=== PATIENT | female | born 1950 | race Hispanic/Latino ===

== ENCOUNTER 2024-02-12 10:59 | Emergency (ER) | payer SELFPAY ==
[2024-02-12 12:04] LABS: Absolute Eosinophils 0.2 K/uL (0-0.5); Absolute Lymphocytes (CBC) 1.3 K/uL (0.7-4.9); Absolute Monocytes 0.5 K/uL (0.1-1.3); Absolute Neutrophil 5.1 K/uL (1.8-8.0); Basophils % 0.4 % (0-1.3); Eosinophils % 2.6 % (0-4.4); Hemoglobin 14.2 g/dL (12.0-15.0); Lymphocytes % 18.2 % (15.3-44.8); MCH 31.8 pg (27.0-35.0); MCHC 33.7 g/dL (32.0-36.0); MCV 94.4 fL (80-100); MPV 10.4 fL (7.6-11.3); Monocytes % 6.7 % (3.3-12.3); Neutrophils % 72.1 % (41.7-73.7); Nucleated Red Blood Cells % 0.2 % (0-0); Platelets 187 thou/uL (152-406); RBC Red Blood Cell Count 4.46 M/uL (3.86-4.86); Red Cell Distribution Width 13.8 % (12.1-15.2)
[2024-02-12 12:10] LABS: PT Prothrombin Time 11.8 SECONDS (9.4-12.5); PTT, Activated Partial Thromb 28.8 SECONDS (24.3-36.9); Protime INR 1.06
--- NOTE | 2024-02-12 12:16 | RAD REPORT ---
EXAM: CT brain without contrast HISTORY: Left facial droop COMPARISON: None TECHNIQUE: Multiple contiguous axial images were obtained and a CT of the brain without contrast. Sagittal and coronal reformats were performed. Automated exposure control, adjustment of the mA and/or kV according to patient size, and/or itera tive reconstruction. Unless otherwise specified, incidental findings do not require dedicated imaging follow-u FINDINGS: An intracranial bleed is not seen Ventricles are normal caliber No extra-axial fluid collection noted 2.5 cm low-density area right frontal lobe. No fluid within the visualized sinuses or mastoids noted. IMPRESSION: 2.5 cm low-density area right frontal lobe probably an acute infarction. from the emergency room was notified at 12:10 PM February 12, 2024
[2024-02-12 12:26] LABS: Albumin 3.8 g/dL (3.4-5.0); Albumin/Globulin Ratio 0.8 (1.1-1.8); Anion Gap 9.6 mEq/L (5.0-15.0); Bilirubin Direct 0.3 mg/dL (0-0.2); Bilirubin Indirect, Calculated 1.6 mg/dL (0.2-0.8); Bilirubin Total 1.9 mg/dL (0.2-1.0); Globulin 4.6 g/dL (2.3-3.5); Protein, Total 8.4 g/dL (6.4-8.2)
[2024-02-12 12:27] LABS: Magnesium 2.1 mg/dL (1.6-2.4); Potassium 3.6 mEq/L (3.5-5.1)
--- NOTE | 2024-02-12 12:31 | RAD REPORT ---
EXAMINATION: CTA HEAD CLINICAL INDICATION: Left facial droop TECHNIQUE: Axial CT images were obtained through the head after 100 cc Isovue-370 intravenous contras t utilizing angiographic protocol with 3D post-processing (maximum intensity projection images, volume rendered images and/or shaded surface rendered images). One or more of the following dose red uction techniques were used: Automated exposure control, adjustment of the mA and/or kV according to patient size, and/or iterative reconstruction. Unless otherwise specified, incidental findings do not require dedicated imaging follow-up. COMPARISON: None FINDINGS: Distal internal carotid, basilar, anterior cerebral, left middle cerebral and posterior cerebral noni rajwinder do not demonstrate a significant stenosis Hypoplastic A1 segment right anterior cerebral artery origin posterior cerebral arteries An aneurysm not noted. No large vessel occlusion Narrowing of branch right middle cerebral artery. IMPRESSION: Narrowing of a branch of the right middle cerebral artery. No large vessel occlusion.
--- NOTE | 2024-02-12 12:31 | RAD REPORT ---
EXAMINATION: Neck Angio CLINICAL INDICATION: Left facial droop TECHNIQUE: Axial CT images were obtained from the aortic arch to the skull base after intravenous adm inistration of 100 cc Isovue-370 utilizing angiographic protocol. Multiplanar reformats, as well as 3D post-processing (maximum intensity projection images, volume rendered images and/or shaded surface rendered images) were generated and reviewed. One or more of the following dose reduction techniques were used: Automated exposure control, adjustment of the mA and/or kV according to patient size, and/or iterative reconstruction. Unless otherwise specified, incidental findings do not require dedicated imaging follow-up. COMPARISON: No prior exam. FINDINGS: The visualized aortic arch and great vessels do not demonstrate a significant abnormality Marked calcified plaque proximal right internal carotid artery. No significant additional vascular abnormality. Methods for NASCET criteria: Mild stenosis, 0% to 49%; Moderate stenosis 50% to 69%; Severe stenosis, 70% to 99% IMPRESSION: Marked calcified plaque right proximal internal carotid artery results in an approximately 90% stenos is
--- NOTE | 2024-02-12 12:32 | RAD REPORT ---
Procedure: Chest Single View HISTORY: CVA COMPARISON: none FINDINGS: The lungs appear clear of acute infiltrate. No significant pleural effusion noted. The heart is normal size. IMPRESSION: No acute abnormality is displayed.
--- NOTE | 2024-02-12 12:51 | ER ---
Nurse's Notes [facility] Name: Katie Cardenas Age: 73 yrs Sex: Female : 1950 Arrival Date: 02/12/2024 Time: 10:59 Bed 19 Private MD: Diagnosis: Acute CVA;Severe carotid stenosis Presentation: 02/11 11:21 Chief complaint: Patient states: left sided facial droop that started yesterday morning kc6 pt denies headache. Coronavirus screen: At this time, the client does not indicate any symptoms associated with coronavirus-19. Ebola Screen: No symptoms or risks identified at this time. An acute neurological deficit is present. The charge nurse has been notified. Pre-hospital glucose is not applicable to this patient. Initial Sepsis Screen: Does the patient meet any 2 criteria? HR > 90 bpm. Does the patient have a suspected source of infection?. Risk Assessment: Do you want to hurt yourself or someone else? Patient reports no desire to harm self or others. Onset of symptoms was February 11, 2024. 11:21 Method Of Arrival: Ambulatory kc6 11:21 Acuity: AKASH 2 kc6 Triage Assessment: 11:22 The onset of the patients symptoms was more than six hours ago. General: Appears in no kc6 apparent distress. comfortable, well groomed, well developed, Behavior is calm, cooperative, appropriate for age. Pain: Denies pain. EENT: No signs and/or symptoms were reported regarding the EENT system. Neuro: Level of Consciousness is awake, alert, obeys commands, Oriented to person, place, time, situation, Appropriate for age Second Cutter are equal bilaterally Moves all extremities. Full function Gait is steady, Speech is slurred, Facial droop on left, Facial symmetry: tongue is midline, Pupils are PERRLA, Intact Babinski is positive. Cardiovascular: Capillary refill < 3 seconds. Respiratory: Airway is patent Trachea midline Respiratory effort is even, unlabored, Respiratory pattern is regular, symmetrical. GI: No signs and/or symptoms were reported involving the gastrointestinal system. : No signs and/or symptoms were reported regarding the genitourinary system. Derm: No signs and/or symptoms reported regarding the dermatologic system. Skin is intact, is healthy with good turgor, Skin is pink, warm \T\ dry. Musculoskeletal: No signs and/or symptoms reported regarding the musculoskeletal system. Circulation, motion, and sensation intact. Capillary refill < 3 seconds, Range of motion: intact in all extremities. Stroke Activation: Symptom onset > 6 hours Physician: ED Attending; Name: ; Notified At: ; Arrived At: Physician: Mid-Level Provider; Name: ; Notified At: ; Arrived At: Physician: [not used]; Name: ; Notified At: ; Arrived At: Physician: [not used]; Name: ; Notified At: ; Arrived At: Physician: [not used]; Name: ; Notified At: ; Arrived At: Historical: - Allergies: 11:22 No Known Allergies; kc6 - PMHx: 11:22 Hypertensive disorder; kc6 - PSHx: :22 None; kc6 - Immunization history:: Adult Immunizations up to date. - Infectious Disease History:: Denies. - Social history:: Smoking status: Patient denies any tobacco usage or history of. - Family history:: not pertinent. Screenin:36 [facility] ED Fall Risk Assessment (Adult) History of falling in the last 3 months, kc6 including since admission No falls in past 3 months (0 pts) Confusion or Disorientation No (0 pts) Intoxicated or Sedated No (0 pts) Impaired Gait No (0 pts) Mobility Assist Device Used No (0 pt) Altered Elimination No (0 pt) Score/Fall Risk Level 0 - 2 = Low Risk Oriented to surroundings. Abuse screen: Denies threats or abuse. Denies injuries from another. Nutritional screening: No deficits noted. Tuberculosis screening: No symptoms or risk factors identified. 11:36 VAN Screening: Arm Drift: Patient shows no arm weakness. Patient is VAN negative. kc6 Visual Disturbance: No visual disturbance noted. Aphasia: No aphasia noted. Neglect: No neglect noted. Madelin Swallow Protocol Brief Cognitive Screen What is your name? Normal, Where are you right now? Normal, What year is it? Normal. Oral Mechanism Examination Facial Symmetry: Normal, Motion: Normal, Lip Closure: Normal, Oral Mechanism Result: Normal. 3 oz Water Swallow Challenge: Pt able to drink all water without stopping, coughing, choking or throat clearing: Yes Result: PASS Notified: Shaquille Aly MD. Assessment: 11:09 Reassessment: Pt checked in for mouth swelling. Upon rooming for triage pt noted to hb have slurred speech and left sided facial droop, onset yesterday morning exact time unknown. Dr. Aly called to room for rapid assessment and [facility]. Presenting complaint edited for stroke symptoms. 12:21 Reassessment: Patient appears in no apparent distress at this time. No changes from kc6 previously documented assessment. Patient and/or family updated on plan of care and expected duration. Pain level reassessed. Patient is alert, oriented x 3, equal unlabored respirations, skin warm/dry/pink. 13:21 Reassessment: Patient appears in no apparent distress at this time. No changes from kc6 previously documented assessment. Patient and/or family updated on plan of care and expected duration. Pain level reassessed. Patient is alert, oriented x 3, equal unlabored respirations, skin warm/dry/pink. 14:19 Reassessment: Patient appears in no apparent distress at this time. No changes from kc6 previously documented assessment. Patient and/or family updated on plan of care and expected duration. Pain level reassessed. Patient is alert, oriented x 3, equal unlabored respirations, skin warm/dry/pink. Vital Signs: 11:21 BP 166 / 96; Pulse 98; Resp 18 S; Temp 98.2(O); Pulse Ox 98% on R/A; Weight 62.14 kg kc6 (M); Height 4 ft. 9 in. (R); Pain 0/10; 11:38 BP 143 / 57; Pulse 88; Resp 17 S; Pulse Ox 97% on R/A; kc6 12:21 BP 151 / 60; Pulse 86; Resp 20 S; Pulse Ox 95% on R/A; kc6 14:19 BP 136 / 57; Pulse 80; Resp 18 S; Pulse Ox 96% on R/A; kc6 11:21 Body Mass Index 29.65 (62.14 kg, 144.78 cm) kc6 11:21 Pain Scale: Adult kc6 NIH Stroke Scale Scores: 11:36 NIHSS Score: 2 kc6 ED Course: 11:07 Patient arrived in ED. mg5 11:12 Shaquille Aly MD is Attending Physician. rt 11:12 Caroline Du RN is Primary Nurse. kc6 11:22 Triage completed. kc6 11:22 Arm band placed on. kc6 11:35 Inserted saline lock: 20 gauge in right antecubital area, using aseptic technique. kc6 Blood collected. Flushed with 10 mL NS. Patient maintains SpO2 saturation greater than 95% on room air. 11:36 Patient has correct armband on for positive identification. Placed in gown. Bed in low kc6 position. Call light in reach. Side rails up X 1. Adult w/ patient. telemetry monitor on. Pulse ox on. NIBP on. Door closed. Noise minimized. Lights dimmed. Pillow given. 12:10 CT Neck Angio In Process Unspecified. EDMS 12:11 CT Stroke Brain w/o Contrast In Process Unspecified. EDMS 12:11 Head angio In Process Unspecified. EDMS 12:21 Stroke CXR 1 View In Process Unspecified. EDMS 13:03 initiated a transfer with the [facility] Transfer center. eb 13:07 connected the neuro environmental health aide for [facility] with Dr. Aly for patient transfer eb consultation. 13:15 administrative approval given by Jasson Colin Rn/ patient has been accepted to [facility] ED/ Dr. Aren Arevalo has accepted the patient in transfer/ report to be called to [phone]. 13:45 Assisted to bathroom. kc6 14:20 No provider procedures requiring assistance completed. Patient transferred, IV remains kc6 in place. Administered Medications: 13:00 Drug: Aspirin PO 325 mg PO once Route: PO; kc6 Medication: 14:20 VIS not applicable for this client. kc6 Outcome: 12:50 ER care complete, transfer ordered by rt 14:20 Transferred by ground EMS to [facility], Transfer form completed. kc6 14:20 Condition: good 14:20 Instructed on the need for transfer, 14:20 Patient left the ED. kc6 NIH Stroke Scale - NIH Stroke Score Date: 02/12/2024 Time: 11:36 Total Score = 2 10. Dysarthria (speech clarity - read or repeat words) - 1(Mild to Moderate) 11. Extinction and Inattention (visual/tactile/auditory/spatial/personal) - 0(No abnormality) 1a. Level of Consciousness (LOC) - 0(Alert) 1b. Level of Consciousness (LOC) (Month \T\ Age) - 0(Both) 1c. LOC Commands (Open \T\ Closes Eyes/Orchid Transplanter) - 0(Both) 2. Best Gaze (Lateral Gaze Paresis) - 0(Normal) 3. Visual Field Loss - 0(No visual loss) 4. Facial Palsy - 1(Minor Paralysis) 5a. Left Arm: Motor (10-second hold) - 0(No drift) 5b. Right Arm: Motor (10-second hold) - 0(No drift) 6a. Left Leg: Motor (5-second hold - always test supine) - 0(No drift) 6b. Right Leg: Motor (5-second hold - always test supine) - 0(No drift) 7. Limb Ataxia (finger/nose \T\ heel/atkins - test with eyes open) - 0(Absent) 8. Sensory Loss (pinprick arms/legs/face) - 0(Normal) 9. Best Language: Aphasia (description/naming/reading) - 0(No aphasia) Initials: kc6 Signatures: Dispatcher [employer] EDMS Alee Chaudhry RN RN Yodit Guidry Kaitlyn, RN RN 6 Shaquille Aly MD MD Dorina Bertrand mg5 Corrections: (The following items were deleted from the chart) 11:21 11:21 Chief complaint: hb hb 11:26 11:21 Chief complaint: Patient states: left sided facial droop that started kc6 yesterday morning kc6 11:29 11:09 Reassessment: Pt checked in for mouth swelling. Upon rooming for triage pt noted to have slurred speech and left sided facial droop, onset yesterday morning. Dr. Aly called to room for rapid assessment and NIH. 11:35 11:21 Chief complaint: Patient states: left sided facial droop that started kc6 yesterday at approximately 1800. pt denies headache kc6 11:35 11:22 The onset of the patients symptoms was February 11, 2024 at 18:00 kc6 kc6 11:41 11:09 Reassessment: Pt checked in for mouth swelling. Upon rooming for triage pt noted to have slurred speech and left sided facial droop, onset yesterday morning. Dr. Aly called to room for rapid assessment and NIH. Presenting complaint edited for stroke symptoms. hb
--- NOTE | 2024-02-12 12:51 | EDPHYS ---
Physician Documentation [facility] Name: Katie Cardenas Age: 73 yrs Sex: Female : 1950 Arrival Date: 02/12/2024 Time: 10:59 Bed 19 Private MD: ED Physician Shaquille Aly HPI: 02/11 12:53 This 73 yrs old Female presents to ER via Ambulatory with complaints of S/S of rt Possible Stroke. 12:54 Patient presents to the ED with a left-sided facial droop starting yesterday morning. rt Patient has some slurred speech but denies other acute complaints at this time. Symptoms are moderate in severity, no other aggravating or alleviating factors.. Historical: - Allergies: : No Known Allergies; kc6 - PMHx: 11: Hypertensive disorder; kc6 - PSHx: : None; kc6 - Immunization history:: Adult Immunizations up to date. - Infectious Disease History:: Denies. - Social history:: Smoking status: Patient denies any tobacco usage or history of. - Family history:: not pertinent. ROS: 12:54 Constitutional: Negative for fever, chills, and weight loss, Cardiovascular: Negative rt for chest pain, palpitations, and edema, Respiratory: Negative for shortness of breath, cough, wheezing, and pleuritic chest pain, Abdomen/GI: Negative for abdominal pain, nausea, vomiting, diarrhea, and constipation, Skin: Negative for injury, rash, and discoloration, 12:54 Neuro: Positive for Facial droop, negative for numbness, Exam: 12:54 Constitutional: This is a well developed, well nourished patient who is awake, alert, rt and in no acute distress. Head/Face: Normocephalic, atraumatic. Chest/axilla: Normal chest wall appearance and motion. Nontender with no deformity. No lesions are appreciated. Cardiovascular: Regular rate and rhythm with a normal S1 and S2. No gallops, murmurs, or rubs. Normal PMI, no JVD. No pulse deficits. Respiratory: Lungs have equal breath sounds bilaterally, clear to auscultation and percussion. No rales, rhonchi or wheezes noted. No increased work of breathing, no retractions or nasal flaring. Abdomen/GI: Soft, non-tender, with normal bowel sounds. No distension or tympany. No guarding or rebound. No evidence of tenderness throughout. Skin: Warm, dry with normal turgor. Normal color with no rashes, no lesions, and no evidence of cellulitis. MS/ Extremity: Pulses equal, no cyanosis. Neurovascular intact. Full, normal range of motion. 12:54 Eyes: Extraocular muscles intact, no visual field deficits. 12:54 ECG was reviewed by the Attending Physician. 12:54 Neuro: Left-sided facial droop, dysarthria noted, no aphasia, cranial nerves otherwise intact, strength and sensation intact in upper and lower extremities, Vital Signs: 11:21 BP 166 / 96; Pulse 98; Resp 18 S; Temp 98.2(O); Pulse Ox 98% on R/A; Weight 62.14 kg kc6 (M); Height 4 ft. 9 in. (R); Pain 0/10; 11:38 BP 143 / 57; Pulse 88; Resp 17 S; Pulse Ox 97% on R/A; kc6 12:21 BP 151 / 60; Pulse 86; Resp 20 S; Pulse Ox 95% on R/A; kc6 14:19 BP 136 / 57; Pulse 80; Resp 18 S; Pulse Ox 96% on R/A; kc6 11:21 Body Mass Index 29.65 (62.14 kg, 144.78 cm) 6 11:21 Pain Scale: Adult kc6 NIH Stroke Scale Scores: 11:36 NIHSS Score: 2 kc6 MDM: 11:14 Medical Screening Exam initiated rt 12:55 Differential diagnosis: CVA, TIA. TNKase (Tenecteplase) Screening: Contraindications: rt Patient reports onset of signs and symptoms of stroke greater than 6 hours ago: Yes. Data reviewed: vital signs, nurses notes, lab test result(s), radiologic studies. Consideration of Admission/Observation Patient requires transfer for vascular surgery eval given carotid stenosis. I considered the following discharge prescriptions or medication management in the emergency department Medications were administered in the Emergency Department. See MAR. Independent interpretation of the following test(s) in the Emergency Department CT Scan: My interpretation is No intracranial hemorrhage seen on interpretation of CT scan images. Counseling: I had a detailed discussion with the patient and/or guardian regarding the historical points, exam findings, and any diagnostic results supporting the discharge/admit diagnosis, lab results, radiology results, the need to transfer to another facility. Response to treatment: There is no appreciated change of the patient's symptoms at this time. 02/11 11:21 Order name: Basic Metabolic Panel; Complete Time: 12:30 rt 02/11 11:21 Order name: CBC with Diff; Complete Time: 12:30 rt 02/11 11:21 Order name: Hepatic Function; Complete Time: 12:30 rt 02/11 11:21 Order name: High Sensitivity Troponin; Complete Time: 12:30 rt 02/11 11:21 Order name: Magnesium; Complete Time: 12:30 rt 02/11 11:21 Order name: Protime (+inr); Complete Time: 12:30 rt 02/11 11:21 Order name: Ptt, Activated; Complete Time: 12:30 rt 02/11 11:28 Order name: Glucose, Ancillary Testing; Complete Time: 12:30 EDMS 02/11 11:21 Order name: CT Neck Angio; Complete Time: 12:33 rt 02/11 11:21 Order name: CT Stroke Brain w/o Contrast; Complete Time: 12:30 rt 02/11 11:21 Order name: Stroke CXR 1 View; Complete Time: 12:33 rt 02/11 11:26 Order name: Head angio; Complete Time: 12:33 EDMS 02/11 11:21 Order name: Accucheck; Complete Time: 11:34 rt 02/11 11:21 Order name: Cardiac monitoring; Complete Time: 11:34 rt 02/11 11:21 Order name: EKG - Nurse/Tech; Complete Time: 11:34 rt 02/11 11:21 Order name: IV Saline Lock; Complete Time: 11:34 rt 02/11 11:21 Order name: Labs collected and sent; Complete Time: :34 rt 02/11 11:21 Order name: NPO; Complete Time: :34 rt 02/11 11:21 Order name: O2 Per Protocol; Complete Time: :34 rt 02/11 11:21 Order name: O2 Sat Monitoring; Complete Time: :34 rt 02/11 11:21 Order name: Stroke Swallow Screen; Complete Time: 11:34 rt EC:54 Rate is 90 beats/min. Rhythm is regular, Normal Sinus Rhythm with No ectopy. QRS [place] rt is Normal. [place] interval is normal. QRS interval is normal. QT interval is normal. No Q waves. T waves are Normal. No ST changes noted. Interpreted by me. Administered Medications: 13:00 Drug: Aspirin PO 325 mg PO once Route: PO; kc6 Disposition Summary: 02/12/24 12:50 Transfer Ordered Notes: Transfer Location: [facility] rt Reason: Higher level of care rt Condition: Stable rt Problem: new rt Symptoms: are unchanged rt Accepting Physician: (02/12/24 14:20) kc6 Diagnosis - Acute CVA rt - Severe carotid stenosis rt Forms: - Medication Reconciliation Form rt - SBAR form rt NIH Stroke Scale - NIH Stroke Score Date: 02/12/2024 Time: 11:36 Total Score = 2 10. Dysarthria (speech clarity - read or repeat words) - 1(Mild to Moderate) 11. Extinction and Inattention (visual/tactile/auditory/spatial/personal) - 0(No abnormality) 1a. Level of Consciousness (LOC) - 0(Alert) 1b. Level of Consciousness (LOC) (Month \T\ Age) - 0(Both) 1c. LOC Commands (Open \T\ Closes Eyes/Cook Mayonnaise) - 0(Both) 2. Best Gaze (Lateral Gaze Paresis) - 0(Normal) 3. Visual Field Loss - 0(No visual loss) 4. Facial Palsy - 1(Minor Paralysis) 5a. Left Arm: Motor (10-second hold) - 0(No drift) 5b. Right Arm: Motor (10-second hold) - 0(No drift) 6a. Left Leg: Motor (5-second hold - always test supine) - 0(No drift) 6b. Right Leg: Motor (5-second hold - always test supine) - 0(No drift) 7. Limb Ataxia (finger/nose \T\ heel/atkins - test with eyes open) - 0(Absent) 8. Sensory Loss (pinprick arms/legs/face) - 0(Normal) 9. Best Language: Aphasia (description/naming/reading) - 0(No aphasia) Initials: kc6 Signatures: Dispatcher [employer] Caroline Watt RN RN kc6 Shaquille Aly MD MD rt Corrections: (The following items were deleted from the chart) 11:21 11:21 BASIC METABOLIC PANEL+C.LAB.BRZ ordered. EDMS EDMS 11: 11:21 CBC+H.LAB.BRZ ordered. EDMS EDMS 11: 11:21 HEPATIC FUNCTION+C.LAB.BRZ ordered. EDMS EDMS 11: 11:21 Troponin High Sensitivity+C.LAB.BRZ ordered. EDMS EDMS 11: 11:21 MAGNESIUM+C.LAB.BRZ ordered. EDMS EDMS 11: 11:21 PROTIME (+INR)+COAG.LAB.BRZ ordered. EDMS EDMS 11: 11:21 PTT, ACTIVATED+COAG.LAB.BRZ ordered. EDMS EDMS 11: 11:22 Neck Angio+CT.RAD.BRZ ordered. EDMS EDMS 11 11:22 CT-STROKE BRAIN W/O CONTRAST+CT.RAD.BRZ ordered. EDMS EDMS 11: 11:22 Chest Single View+RAD.RAD.BRZ ordered. EDMS EDMS 14:20 12:50 rt kc6
[2024-02-12] MEDS ORDERED: ASPIRIN 325 MG TAB ONE (12:55)
[2024-02-12 14:24] VITALS: TEMP 98.2
[2024-02-12 14:28] VITALS: BP 136/57; O2SAT 96
--- NOTE | 2024-02-13 12:41 | EKG ---
Test Date: 2024-02-12 Test Time: 11:31:41 Nuclear Equipment Operator: KHALIDA MEASUREMENT RESULTS: Intervals: Rate: 90 LA: 130 QRSD: 80 QT: 356 QTc: 435 [place]: P: 53 LA: 130 QRS: 42 T: 32 INTERPRETIVE STATEMENTS: Normal sinus rhythm Normal ECG No previous ECG available for comparison Electronically Signed On 02-13-24 12:39:01 ELECT[employer]OLESS PL[employer] by Kwame Adame
== END 2024-02-12 14:20 | disposition short-term general hospital (02) ==
LOC: EDBD 10:59 → ER 10:59
DX: I63.9 Cerebral infarction, unspecified (principal); I65.21 Occlusion and stenosis of right carotid artery; I10 Essential (primary) hypertension; R29.702 NIHSS score 2
CPT/HCPCS: 36415; 70450; 70496; 70498; 71045; 80048; 80076; 82947; 83735; 84484; 85025; 85610; 85730; 93005; 99285; Q9967